=== PATIENT | male | born 1945 ===

== ENCOUNTER 2019-01-12 16:55 | Inpatient (IN) | payer OTHER ==
[2019-02-03] MEDS ORDERED: AVAPRO150 MG (10:20)
[2019-02-03] MEDS ORDERED: FISH OIL 1,0001 EAC1 (10:20)
[2019-02-03] MEDS ORDERED: ASPIR 8181 MG (10:20)
[2019-02-03] MEDS ORDERED: VITAMIN D35000 UNI1 (10:22)
[2019-02-03] MEDS ORDERED: MEMANTINE HCL10 GM (10:22)
[2019-02-03] MEDS ORDERED: METFORMIN HCL500 M3 (10:22)
[2019-02-03] MEDS ORDERED: TAMS0.4C (10:22)
[2019-02-03] MEDS ORDERED: SIMVASTATIN80 MG (10:23)
[2019-02-03] MEDS ORDERED: LEVOXYL100 MCG (10:23)
[2019-02-09] MEDS ORDERED: INTEGRA PLUS C1 EACH PO (06:31)
[2019-02-09] MEDS ORDERED: BACTRIM DS TAB1 EACH PO (06:31)
[2019-02-09] MEDS ORDERED: ULTRACET PO (06:31)
[2019-02-09] MEDS ORDERED: XARELTO10 MG PO (06:31)
== END 2019-02-09 12:09 | DRG 470 ==
LOC: ADM 02-03 08:30 → EDSTATUS 02-07 08:30 → SURH 02-07 08:30 → CIR.AMB 02-07 08:30 → O/R 02-07 09:14 → SURG 02-07 09:14
PROVIDERS: ADMIT Orthopaedic Surgery Sports Medicine
PROC: 0SRC0J9 Replacement of Right Knee Joint with Synthetic Substitute, Cemented, Open Approach (ICD-10-PCS; principal; 2019-02-07 17:00)
DX: M17.11 Unilateral primary osteoarthritis, right knee (principal); I10 Essential (primary) hypertension; E03.8 Other specified hypothyroidism; E11.9 Type 2 diabetes mellitus without complications; Z79.4 Long term (current) use of insulin